=== PATIENT | male | born 1955 | race Caucasian/White ===

== ENCOUNTER 2021-04-26 10:03 | Day surgery (SDC) | payer MEDICARE ==
[~2021-04-26] VITALS: Ht 185.4 cm; Wt 77.1 kg
[~2021-04-26 10:03] MED LIST: ALBUTEROL1 IN; ALBUTEROL1.25 MG/3 PO; ATROVENT H17 MCG/ACT IN; BL IBUPROFEN200 MG PO; CIALIS20 MG PO; FLEXERIL5 M1 PO; LISINOPRIL30 MG PO; MONTELUKAST SOD10 MG PO; NORVASC5 M1 PO; OMEPRAZOLE20 MG PO; PERCOCET 10/31 COMBO PO; SINGULAIR10 MG PO
[2021-04-26 13:08] VITALS: BP 120/70
== END 2021-04-26 13:05 | disposition home or self-care (01) ==
LOC: ORM 10:03
PROVIDERS: ATTEND Surgery
PROC: 0DBN8ZX Excision of Sigmoid Colon, Via Natural or Artificial Opening Endoscopic, Diagnostic (ICD-10-PCS; principal; 2021-04-26)
PROC: 0DBL8ZX Excision of Transverse Colon, Via Natural or Artificial Opening Endoscopic, Diagnostic (ICD-10-PCS; 2021-04-26)
PROC: 0JPT0YZ Removal of Other Device from Trunk Subcutaneous Tissue and Fascia, Open Approach (ICD-10-PCS; 2021-04-26)
DX: D12.3 Benign neoplasm of transverse colon (principal); D12.5 Benign neoplasm of sigmoid colon; T85.898A Other specified complication of other internal prosthetic devices, implants and grafts, initial encounter; I10 Essential (primary) hypertension; K64.4 Residual hemorrhoidal skin tags; F17.210 Nicotine dependence, cigarettes, uncomplicated; Y83.8 Other surgical procedures as the cause of abnormal reaction of the patient, or of later complication, without mention of misadventure at the time of the procedure